=== PATIENT | female | born 1950 | race Caucasian/White ===

== ENCOUNTER 2018-09-15 11:53 | Emergency (ER) | payer OTHER ==
[2018-09-15] MEDS: ONDANSETRON (ODT) 4 MG TAB ODT (14:03)
[2018-09-15] MEDS: HYDROCODONE/APAP (5/325) TAB PO (14:03)
== END 2018-09-15 17:12 | disposition home or self-care (01) ==
LOC: FTE 11:53
DX: S99.921A Unspecified injury of right foot, initial encounter (principal); W19.XXXA Unspecified fall, initial encounter; Y92.9 Unspecified place or not applicable
CPT/HCPCS: 29505; 73110-LT; 73562; 73630-LT; 99283-25